=== PATIENT | male | born 1995 | race Caucasian/White ===

== ENCOUNTER → 2018-11-30 | Outpatient (REF) | payer OTHER ==
[2018-11-30 18:11] LABS: BASO # 0.1 10^3/uL (0.0-0.2); BASO % 0.7 % (0.0-1.0); EOS # 0.9 10^3/uL (0.0-0.50); EOS % 9.7 % (0.0-3.0); HEMATOCRIT 45.7 % (42.0-52.0); HEMOGLOBIN 15.3 g/dl (13.5-17.5); LYMPH # 3.1 10^3/uL (1.5-6.5); LYMPH % 35.4 % (24.0-44.0); MEAN CORPUSCULAR HEMOGLOBIN 31.9 pg (27.0-33.0); MEAN CORPUSCULAR HGB CONC 33.5 g/dl (32.0-36.5); MEAN CORPUSCULAR VOLUME 95.4 fl (80.0-96.0); MONO # 0.5 10^3/uL (0.0-0.8); MONO % 5.7 % (0.0-5.0); NEUTROPHILS # 4.2 10^3/uL (1.8-7.7); NEUTROPHILS % 48.3 % (36.0-66.0); PLATELET COUNT, AUTOMATED 313 10^3/uL (150-450); RED BLOOD COUNT 4.79 10^6/uL (4.30-6.10); WHITE BLOOD COUNT 8.7 10^3/uL (4.0-10.0)
[2018-12-06 08:35] LABS: D001-IgE D pteronyssinus 2.7 kU/L (Class III); E001-IgE Cat Epith/Dander 1.41 kU/L (Class III); E005-IgE Dog Dander 0.3 kU/L (Class 0/I); G002-IgE Bermuda Grass 7.94 kU/L (Class IV); G008-IgE Kentucky Bluegrass 48.7 kU/L (Class V); M001-IgE Penicillium chrysogen 0.15 kU/L (Class 0/I); M002 IgE Cladosporium herbaru 1.09 kU/L (Class II); M003 IgE Aspergillus fumigatu 0.43 kU/L (Class I); M006-IgE Alternaria alternata 6.51 kU/L (Class IV); T001-IgE Maple/Box Elder 10.7 kU/L (Class IV); T003-IgE Common Silver Birch 64.4 kU/L (Class V); T006-IgE Cedar, Mountain 3.07 kU/L (Class III); T007-IgE Oak, White 11.7 kU/L (Class IV); T008-IgE Elm, American 6.87 kU/L (Class IV); T015-IgE Ash, White 14.4 kU/L (Class IV); T041-IgE Hickory, White 7.42 kU/L (Class IV); T070-IgE White Mulberry 0.16 kU/L (Class 0/I); W001-IgE Ragweed, Short 68.1 kU/L (Class V); W014-IgE Pigweed, Rough 3.95 kU/L (Class IV); W018-IgE Sheep Sorrel 8.14 kU/L (Class IV)
== END ==
LOC: M LAB REF 17:09
PROVIDERS: ATTEND Internal Medicine Pulmonary Disease
DX: J45.30 Mild persistent asthma, uncomplicated (principal)

== ENCOUNTER → 2019-10-04 | Outpatient (CLI) | payer OTHER ==
--- NOTE | 2019-10-04 14:07 | PFTRPT ---
Site: [facility], [address] [place] [address], [id number] ID: [id number] Name: CORWIN CASTANEDA Visit Date: 10/04/2019 Second ID: [id number] Referring Doctor: SARTHAK SWIFT Reviewing Doctor: Marcio Gonzalez MD Clinical Research Specialist: Lexus Sweeney Age: 24 : 1995 Sex: Male Race: Height: 72.00 Inches Weight: 238.00 Lbs BSA: 2.29 Order IDs: [id number] Requested Test(s): <RESP-PFT.DLCO> Diagnosis: J45.30 test meet the ATS standards for acceptability and repeatability. Review Status: Not Reviewed Pre-Bronch Post-Bronch Pred Actual %Pred Actual %Chng SPIROMETRY FVC (L) 5.91 5.78 97 FEV1 (L) 4.87 5.18 106 FEV1/FVC (%) 83 90 107 FEF 25% (L/sec) 9.26 11.93 128 FEF 50% (L/sec) 6.25 7.90 126 FEF 75% (L/sec) 2.46 3.29 133 FEF 25-75% (L/sec) 5.00 6.62 132 FEF Max (L/sec) 10.62 12.54 118 FIVC (L) 5.35 FIF 50% (L/sec) 5.68 5.34 94 FIF Max (L/sec) 6.05 MVV (L/min) 193 221 114 Expiratory Time (sec) 7.04 Back Extrap Vol (L) 0.22 Time To FEFmax (sec) 0.113 LUNG VOLUMES SVC (L) 5.69 5.92 104 IC (L) 3.73 5.68 152 ERV (L) 1.96 0.25 12 TGV (L) 3.55 2.27 63 RV (Pleth) (L) 1.59 2.02 127 TLC (Pleth) (L) 7.28 7.94 109 RV/TLC (Pleth) (%) 21 25 121 DIFFUSION DLCOunc (ml/min/mmHg) 37.69 41.10 109 DLCOcor (ml/min/mmHg) 37.69 39.33 104 DL/VA (ml/min/mmHg/L) 5.18 5.64 108 VA (L) 7.28 6.97 95 BHT (sec) 10.86 IVC (L) 5.67 TLC (SB) (L) 7.12 AIRWAYS RESISTANCE Raw (cmH2O/L/s) 1.45 1.10 75 Gaw (L/s/cmH2O) 1.03 0.93 90 sRaw (cmH2O*s) 4.76 2.62 55 sGaw (1/cmH2O*s) 0.20 0.39 194 BLOOD GASES Hgb (gm/dL) 16.3
--- NOTE | 2019-10-05 02:50 | REP ---
Clinical: Persistent asthma . Comparison: None . Technique: PA and lateral. Findings: The mediastinum and cardiac silhouette are normal. The lung henry are clear and without acute consolidation, effusion, or pneumothorax. The skeletal structures are intact and normal. Impression: 1. No acute cardiopulmonary process. Electronically Signed by Awais Hansen MD 10/05/2019 02:41 A
== END ==
LOC: M CARPUL 13:23
PROVIDERS: ATTEND Nurse Practitioner Family
DX: J45.30 Mild persistent asthma, uncomplicated (principal)

== ENCOUNTER 2022-09-06 17:39 | Inpatient (IN) | payer MEDICAID, OTHER ==
[~2022-09-06] VITALS: Ht 185.4 cm; Wt 98.1 kg
[2022-09-06] MEDS ORDERED: ALBU8.5H PO (19:20)
[2022-09-06] MEDS ORDERED: TRAZ-252 PO (19:20)
[2022-09-06] MEDS ORDERED: BUPR150T12 PO (19:20)
[2022-09-06] MEDS ORDERED: LEXA1TAB2 PO (19:20)
[2022-09-06] MEDS ORDERED: HOME MED LIST COMPLETE! XX SCH (19:25)
[2022-09-06 19:54] LABS: HEMOGLOBIN 16.2 g/dl (13.5-17.5); MEAN CORPUSCULAR HEMOGLOBIN 32.2 pg (27.0-33.0); MEAN CORPUSCULAR HGB CONC 33.8 g/dl (32.0-36.5); MEAN CORPUSCULAR VOLUME 95.4 fl (80.0-96.0); PLATELET COUNT, AUTOMATED 363 10^3/uL (150-450); RED BLOOD COUNT 5.03 10^6/uL (4.30-6.10); WHITE BLOOD COUNT 8.8 10^3/uL (4.0-10.0)
[2022-09-06 20:17] LABS: AMPHETAMINES LEVEL URINE NEGATIVE (NEGATIVE); BARBITURATES URINE NEGATIVE (NEGATIVE); BENZODIAZEPINES URINE NEGATIVE (NEGATIVE); CANNABINOIDS URINE NEGATIVE (NEGATIVE); COCAINE METABOLITE URINE NEGATIVE (NEGATIVE); METHADONE URINE NEGATIVE (NEGATIVE); OPIATES URINE NEGATIVE (NEGATIVE); PHENCYCLIDINE URINE NEGATIVE (NEGATIVE)
[2022-09-06 20:19] LABS: ETHYL ALCOHOL (ETHANOL) 0.031 % (0.000-0.010)
[2022-09-06 20:21] LABS: ACETAMINOPHEN LEVEL < 2.0 UG/ML (10.0-20.0); ALBUMIN 4.3 G/DL (3.2-5.2); ALKALINE PHOSPHATASE 72 U/L (46-116); ALT/SGPT 43 U/L (7.0-40); AST/SGOT 27 U/L (<34); BILIRUBIN,DIRECT 0.1 MG/DL (<0.4); BILIRUBIN,TOTAL 0.4 MG/DL (0.3-1.2); BLOOD UREA NITROGEN 15 MG/DL (9-23); CALCIUM LEVEL 9.5 MG/DL (8.5-10.1); CARBON DIOXIDE LEVEL 30 MMOL/L (20-31); CHLORIDE LEVEL 105 MMOL/L (98-107); CREATININE FOR GFR 1.18 MG/DL (0.70-1.30); GLOMERULAR FILTRATION RATE > 60.0 (>60); GLUCOSE, FASTING 88 MG/DL (60-100); POTASSIUM SERUM 4.4 MMOL/L (3.5-5.1); SODIUM LEVEL 143 MMOL/L (136-145); TOTAL PROTEIN 7.2 G/DL (5.7-8.2)
[2022-09-06 20:23] LABS: THYROID STIMULATING HORMONE 1.629 uIU/ML (0.55-4.78)
[2022-09-06] MEDS ORDERED: MAALOX 30 ML SUSP *UDC PO PRN (20:35)
[2022-09-06] MEDS ORDERED: OLANZapine ORAL DISINTEGRATING TAB 5MG PO PRN (20:35)
[2022-09-06] MEDS ORDERED: MOM 30ML SUSPENSION UDC PO PRN (20:35)
[2022-09-06] MEDS ORDERED: traZODone 50 MG TAB PO PRN (20:35)
[2022-09-06] MEDS ORDERED: ACETAMINOPHEN TAB 650MG DOSE (2X325MG) PO PRN (20:35)
[2022-09-06] MEDS ORDERED: LORazepam 2 MG TAB PO PRN (21:35)
[2022-09-06 22:01] VITALS: BP 164/102
[2022-09-06 22:10] VITALS: BP 164/102
[2022-09-06] MEDS: THIAMINE 100 MG TAB PO SCH (22:25)
[2022-09-06] MEDS: traZODone 100 MG TAB PO SCH (22:46)
[2022-09-06] MEDS: ESCITALOPRAM OXALATE 10 MG TAB (LEXAPRO) PO SCH (22:46)
[2022-09-07] VITALS: BP 112/72
[2022-09-07 06:28] VITALS: BP 122/72
[2022-09-07 08:00] VITALS: BP 150/94
[2022-09-07] MEDS ORDERED: ALBUTEROL 90 MCG/ACT 8GM HFA INHALER INH PRN (08:40)
[2022-09-07] MEDS: ADVAIR HFA 45/21MCG INHALER INH SCH ×2 (09:00→20:43)
[2022-09-07] MEDS ORDERED: SERTRALINE HCL 50 MG TAB PO SCH (09:00)
[2022-09-07] MEDS: MULTIVITAMINS/MINERALS THERAP 1 TAB PO SCH (09:02)
[2022-09-07] MEDS: FOLIC ACID 1MG TAB PO SCH (09:03)
[2022-09-07] MEDS: buPROPion **XL** TABLET 150MG (WELLBUTRIN XL) PO SCH (09:03)
[2022-09-07] MEDS: chlordiazePOXIDE 25 MG CAP PO SCH ×3 (09:03→20:44)
[2022-09-07] MEDS: THIAMINE 100 MG TAB PO SCH ×2 (09:03→20:44)
[2022-09-07] MEDS: NALTREXONE 50 MG TAB PO SCH (12:38)
[2022-09-07 16:45] VITALS: BP 160/92
[2022-09-07 17:53] VITALS: BP 160/92
[2022-09-07] MEDS: MIRTAZAPINE 7.5MG PER 1/2 TABLET PO SCH (20:44)
[2022-09-07] MEDS: ESCITALOPRAM OXALATE 10 MG TAB (LEXAPRO) PO SCH (20:44)
[2022-09-07] MEDS: traZODone 100 MG TAB PO SCH (20:44)
[2022-09-08 06:40] VITALS: BP 135/72
[2022-09-08 06:43] VITALS: BP 135/72
[2022-09-08 07:07] LABS: CHOLESTEROL RISK RATIO 2.8 (<5); LDL CHOLESTEROL 121.8 MG/DL (<100)
[2022-09-08] MEDS: chlordiazePOXIDE 25 MG CAP PO SCH ×3 (07:46→21:47)
[2022-09-08] MEDS: MULTIVITAMINS/MINERALS THERAP 1 TAB PO SCH (07:47)
[2022-09-08] MEDS: THIAMINE 100 MG TAB PO SCH ×2 (07:47→21:47)
[2022-09-08] MEDS: ADVAIR HFA 45/21MCG INHALER INH SCH ×2 (07:47→21:52)
[2022-09-08] MEDS: buPROPion **XL** TABLET 150MG (WELLBUTRIN XL) PO SCH (07:47)
[2022-09-08] MEDS: PILL CUTTER 1 EACH XX PRN (07:48)
[2022-09-08] MEDS: FOLIC ACID 1MG TAB PO SCH (07:48)
[2022-09-08] MEDS: NALTREXONE 50 MG TAB PO SCH (07:48)
[2022-09-08] MEDS ORDERED: NALTREXONE 50 MG TAB PO SCH (09:00)
[2022-09-08 14:50] VITALS: BP 127/68
[2022-09-08 16:50] VITALS: BP 127/68
[2022-09-08] MEDS: traZODone 100 MG TAB PO SCH (21:47)
[2022-09-08] MEDS: MIRTAZAPINE 7.5MG PER 1/2 TABLET PO SCH (21:47)
[2022-09-08] MEDS: ESCITALOPRAM OXALATE 10 MG TAB (LEXAPRO) PO SCH (21:48)
[2022-09-08 22:37] VITALS: BP 135/86
[2022-09-09 06:53] VITALS: BP 136/78
[2022-09-09 06:55] VITALS: BP 136/78
[2022-09-09] MEDS: ADVAIR HFA 45/21MCG INHALER INH SCH (08:35)
[2022-09-09] MEDS: PILL CUTTER 1 EACH XX PRN (08:35)
[2022-09-09] MEDS: THIAMINE 100 MG TAB PO SCH (08:37)
[2022-09-09] MEDS: chlordiazePOXIDE 25 MG CAP PO SCH (08:37)
[2022-09-09] MEDS: FOLIC ACID 1MG TAB PO SCH (08:37)
[2022-09-09] MEDS: MULTIVITAMINS/MINERALS THERAP 1 TAB PO SCH (08:37)
[2022-09-09] MEDS: NALTREXONE 50 MG TAB PO SCH (08:37)
[2022-09-09] MEDS: buPROPion **XL** TABLET 150MG (WELLBUTRIN XL) PO SCH (08:37)
[2022-09-09] MEDS ORDERED: NALT50TA4 PO (08:46)
[2022-09-09] MEDS ORDERED: BUPR150T12 PO (08:46)
[2022-09-09] MEDS ORDERED: ADVA45AE INH (08:46)
[2022-09-09] MEDS ORDERED: TRAZ-252 PO (08:46)
[2022-09-09] MEDS ORDERED: MIRT-10 PO (08:46)
[2022-09-09] MEDS ORDERED: LEXA1TAB2 PO (08:46)
== END 2022-09-09 12:29 | disposition home or self-care (01) | DRG 754 ==
LOC: M ED 17:39 → M ED INP 20:32 → M PSY 21:56
PROVIDERS: ADMIT Student in an Organized Health Care Education/Training Program; ATTEND Student in an Organized Health Care Education/Training Program
DX: F32.9 Major depressive disorder, single episode, unspecified (principal); F43.20 Adjustment disorder, unspecified; F10.10 Alcohol abuse, uncomplicated; R45.851 Suicidal ideations; Z88.8 Allergy status to other drugs, medicaments and biological substances; F12.20 Cannabis dependence, uncomplicated; J45.20 Mild intermittent asthma, uncomplicated; Z79.899 Other long term (current) drug therapy; F19.94 Other psychoactive substance use, unspecified with psychoactive substance-induced mood disorder